=== PATIENT | male | born 1995 | race African-American/Black ===

== ENCOUNTER 2021-10-06 17:12 | Emergency (ER) | payer OTHER, SELFPAY ==
[2021-10-06] MEDS ORDERED: Ketorolac Tromethamine 30 MG/ML VIAL ONE (19:25)
[2021-10-06] MEDS ORDERED: Boostrix 0.5 ML (Tdap) VIAL ONE (19:25)
== END 2021-10-06 19:46 | disposition home or self-care (01) ==
LOC: CSHERS 17:12
DX: S23.41XA Sprain of ribs, initial encounter (principal); S60.221A Contusion of right hand, initial encounter; S09.90XA Unspecified injury of head, initial encounter; Z23 Encounter for immunization; V49.50XA Passenger injured in collision with unspecified motor vehicles in traffic accident, initial encounter
CPT/HCPCS: 90471; 90715; 96372; J1885